=== PATIENT | male | born 1990 | race Caucasian/White ===

== ENCOUNTER 2016-11-05 12:45 | Observation (INO) | payer OTHER ==
[~2016-11-05] VITALS: Ht 177.8 cm; Wt 117.9 kg
[2016-11-05 13:38] LABS: Basophils # (auto) 0.1 uL; Basophils % (auto) 1.1 % (0.0-2.0); CONDITION Y; Eosinophils # (auto) 0.1 uL; Eosinophils % (auto) 1.7 % (0.0-7.0); Hematocrit 43.4 % (41.0-53.0); Hemoglobin 15.1 g/dL (13.5-17.5); Lymphocytes % (auto) 24.6 % (10.0-50.0); Mean Corpuscular Hemoglobin 30.1 pg (28.0-32.0); Mean Corpuscular Hgb Conc. 34.8 g/dL (32.0-36.0); Mean Corpuscular Volume 86.4 fL (80.0-100.0); Mean Platelet Volume 7.4 fL (7.4-10.4); Monocytes # (auto) 0.5 uL; Monocytes % (auto) 6.6 % (0.0-12.0); Neutrophils # (auto) 5.4 uL; Platelet Count (auto) 351 10^3/uL (140-450); Red Cell Distribution Width 13.1 % (11.6-16.0); White Blood Cell 8.2 10^3/uL (4.4-10.8)
[2016-11-05 13:52] LABS: Albumin 3.7 g/dL (3.4-5.0); BUN/Creatinine Ratio 10.4; Calcium 8.8 mg/dL (8.5-10.1); Potassium 3.9 mmol/L (3.5-5.1)
[2016-11-05 13:59] LABS: Bilirubin, Total 0.5 mg/dL (0.2-1.0); Total Protein 7.5 g/dL (6.4-8.2)
[2016-11-05] MEDS ORDERED: ASPirin 81 mg TAB PO ONE (17:15)
[2016-11-05 17:36] LABS: Magnesium 2.4 mg/dL (1.6-2.6)
[2016-11-05 17:39] LABS: INR 0.96 (0.9-1.15); Partial Thromboplastin Time 27.5 sec (22.64-33.71); Prothrombin Time 10.5 sec (9.37-12.3)
[2016-11-05 18:04] LABS: B-Type Natriuretic Peptide 29.87 pg/mL (0-100)
[2016-11-05 18:06] LABS: Temperature: 24.1 C (20.0-25.0)
[2016-11-05 19:27] VITALS: BP 142/98
== END 2016-11-05 20:01 | disposition home or self-care (01) | DRG 313 ==
LOC: ER 12:45 → OVERFLOW 17:13 → ER 20:01
PROVIDERS: ADMIT Family Medicine; ATTEND Family Medicine
DX: R07.89 Other chest pain (principal); R74.8 Abnormal levels of other serum enzymes; Z82.49 Family history of ischemic heart disease and other diseases of the circulatory system
CPT/HCPCS: 36415; 71010; 80053; 83605; 83735; 83880; 84443; 84484; 85025; 85379; 85610; 85730; 87040; 93005; 99285; G0378